=== PATIENT | male | born 1965 | race Caucasian/White ===

== ENCOUNTER 2017-12-26 06:46 | Day surgery (SDC) | payer BC, OTHER ==
[~2017-12-26 06:46] MED LIST: Lactated Ringers 1,000 ML IV SCH
[2017-12-26] MEDS ORDERED: Propofol 200 MG/20 ML SDV IV ONE (07:45)
--- NOTE | 2017-12-26 08:16 | PCM.OPNOTE ---
- General Post-Op/Procedure Note Date of Surgery/Procedure: 12/26/17 Operative Procedure(s): c scope with bx Findings: sigmoid polyps x2 Pre Op Diagnosis: colon cancer screening Post-Op Diagnosis: sigmoid polyps Anesthesia Technique: MAC Primary Surgeon: Jesus Cintron Anesthesia Provider: Daniel Cardona Pathology: sigmoid polyps x2 Complications: None Condition: Good Free Text/Narrative:: see dictation
--- NOTE | 2017-12-26 08:42 | OR ---
DATE OF OPERATION: 12/26/2017 SURGEON: Jesus Cintron MD PROCEDURES PERFORMED: Colonoscopy with cold forceps biopsy. PREOPERATIVE DIAGNOSIS: Need for screening C-scope. POSTOPERATIVE DIAGNOSIS: Sigmoid polyp x2. INDICATIONS FOR PROCEDURE: This is a 52-year-old white male who presents for screening colonoscopy. He was offered and accepted same. DESCRIPTION OF OPERATION: After an excellent IV sedation was administered, digital rectal exam was performed. No marked abnormality was noted. Flexible colonoscope was inserted and advanced to the cecum without difficulty. The prep was excellent. The following findings were noted. Ascending colon, unremarkable. Transverse colon, unremarkable. Descending colon, unremarkable. Sigmoid, in the distal sigmoid, 2 hyperplastic-appearing sigmoid lesions, biopsied with cold biopsy forceps and sent for permanent. Rectum unremarkable. Colon was deflated as the scope was removed. The patient tolerated the procedure well and was taken to recovery room in a good condition. /[id number] /[id number]
== END 2017-12-26 09:12 | disposition home or self-care (01) ==
LOC: FB.SDS 06:46
PROVIDERS: ATTEND Surgery
DX: Z12.11 Encounter for screening for malignant neoplasm of colon (principal); K63.5 Polyp of colon; F17.210 Nicotine dependence, cigarettes, uncomplicated; Z79.899 Other long term (current) drug therapy
CPT/HCPCS: 45380; 88305; J2704; J7120